=== PATIENT | female | born 1950 | race Caucasian/White ===

== ENCOUNTER → 2017-08-12 10:13 | Outpatient (CLI) | payer MEDICARE, BC, SELFPAY ==
--- NOTE | 2017-08-12 10:25 | XR_ITS ---
XR chest 2V HISTORY: ITS.REASON: INFLUENZA, PERSISTANT COUGH ORDERING PHYSICIAN: Shira Sinha PATIENT AGE: 66 years COMPARISON: None available FINDINGS: The cardiomediastinal silhouette and pulmonary vascularity are within normal limits. The lungs are clear without infiltrates, suspicious nodules, or pleural effusions. No acute bony abnormalities. IMPRESSION: Negative chest, no acute finding
== END ==
PROVIDERS: PCP Internal Medicine Adolescent Medicine; Visit Provider Nurse Practitioner Family
DX: R05 Cough (principal); J11.1 Influenza due to unidentified influenza virus with other respiratory manifestations
CPT/HCPCS: 71046

== ENCOUNTER → 2017-09-12 09:26 | Outpatient (CLI) | payer MEDICARE, BC, SELFPAY ==
--- NOTE | 2017-09-12 09:35 | XR_ITS ---
EXAM: XR lumbar spine min 4V HISTORY: ITS.REASON: LBP RADIATING TO LEFT LEG ORDERING PHYSICIAN: Dorene Stephens PATIENT AGE: 66 years COMPARISON: None FINDINGS: There is mild lumbar curvature convex right. There is straightening of the lumbar lordosis. Degenerative disc disease is present at T12-L4 most severe at L3-L4 with endplate osteophytes. No fracture or dislocation. No lytic or blastic change. IMPRESSION: Degenerative disc disease worse at L3-L4
--- NOTE | 2017-09-12 09:35 | XR_ITS ---
XR hip LT 2-3V w/pelvis HISTORY: ITS.REASON: LBP RADIATING TO LEFT LEG ORDERING PHYSICIAN: Dorene Stephens PATIENT AGE: 66 years COMPARISON: None FINDINGS: There are minimal osteoarthritic changes of the left hip with slight decrease in the joint space and minimal osteophyte formation. No fracture or dislocation. No lytic or blastic change. There is a small sclerotic focus overlying the left ilium and could be due to small bone island. IMPRESSION: Mild osteoarthritis of left hip
== END ==
PROVIDERS: PCP Internal Medicine Adolescent Medicine; Visit Provider Nurse Practitioner Family
DX: M54.5 Low back pain (principal)
CPT/HCPCS: 72110; 73502

== ENCOUNTER 2017-10-28 07:22 | Day surgery (SDC) | payer MEDICARE, BC, SELFPAY ==
[2017-10-27 14:32] VITALS: BMI 36.0
[2017-10-28 07:47] VITALS: BP 142/86; PULSE 72; RESP 18; TEMP 36.9; O2SAT 94
[2017-10-28 09:34] VITALS: BP 193/86; PULSE 64; RESP 18; O2SAT 98
[2017-10-28 09:39] VITALS: BP 164/72; PULSE 62; RESP 18; O2SAT 100
[2017-10-28 09:44] VITALS: BP 155/55; PULSE 63; RESP 18; O2SAT 100
[2017-10-28 09:49] VITALS: BP 144/65; PULSE 60; RESP 18; O2SAT 100
[2017-10-28 09:56] VITALS: BP 156/90; PULSE 62; RESP 18; TEMP 36.8; O2SAT 94
== END 2017-10-28 10:10 | disposition home or self-care (01) ==
LOC: OR 07:25
PROVIDERS: Family Provider Internal Medicine Adolescent Medicine; PCP Internal Medicine Adolescent Medicine; Visit Provider Ophthalmology
DX: H25.811 Combined forms of age-related cataract, right eye (principal); H53.8 Other visual disturbances; H35.3110 Nonexudative age-related macular degeneration, right eye, stage unspecified
CPT/HCPCS: 66984; V2632

== ENCOUNTER → 2017-12-24 08:26 | Outpatient (CLI) | payer MEDICARE, BC, SELFPAY ==
[2017-12-24 09:41] LABS: Basophils % 0.7 % (0.1-2.0); Eosinophils # 0.1 K/mm3 (0.0-0.4); Eosinophils % 1.6 % (0.1-12.0); Hematocrit 38.9 % (37.0-47.0); Hemoglobin 13.9 g/dL (12.2-16.2); Lymphocytes # 1.8 K/mm3 (0.7-4.5); Lymphocytes % 33.6 K/mm3 (10-50); Mean Corpuscular HGB Conc 35.7 g/dL (31.8-35.4); Mean Corpuscular Hemoglobin 31.1 pg (27.0-31.2); Mean Corpuscular Volume 87.3 fl (81-99); Mean Platelet Volume 7.1 fl (7.4-10.4); Monocytes # 0.4 K/mm3 (0.1-1.0); Monocytes % 7.6 % (1.7-9.3); Neutrophils # 2.9 K/mm3 (1.8-7.8); Neutrophils % 56.4 % (37.0-80.0); Platelet Count 296 K/mm3 (142-424); Red Blood Count 4.46 M/mm3 (4.20-5.40); Red Cell Distribution Width 12.7 % (11.5-17.5); White Blood Count 5.2 K/mm3 (4.8-10.8)
[2017-12-24 11:50] LABS: Alanine Aminotransferase 22 U/L (12-78); Albumin Level 4.1 gm/dL (3.4-5.0); Albumin/Globulin Ratio 1.2 (1.1-1.8); Alkaline Phosphatase 66 U/L (46-116); Aspartate Amino Transferase 21 U/L (15-37); Bilirubin,Total 0.5 mg/dL (0.2-1.0); Blood Urea Nitrogen 23 mg/dL (7-18); Calcium 10.3 mg/dL (8.5-10.1); Carbon Dioxide 32 mmol/L (21.0-32.0); Chloride 97 mmol/L (98-107); Chol/HDL Ratio 3.1 (1-3.5); Cholesterol 173 mg/dL (140-200); Creatinine,Serum 0.87 mg/dL (0.55-1.02); Estimated Glomerular Filt Rate 65 ml/min (>60); GFR (African American) 79 ML/MIN (>60); Globulin 3.3 gm/dl (1.3-3.2); Glucose 113 mg/dL (74-106); HDL Cholesterol 56 mg/dL (29-89); LDL Cholesterol 102 mg/dL (0-130); Sodium 137 mmol/L (136-145); Total Protein,Serum 7.4 gm/dL (6.4-8.2); Triglycerides 77 mg/dL (30-200); VLDL Cholesterol 15 mg/dL (0-40)
[2017-12-24 12:23] LABS: Hemoglobin A1C 5.8 % (0.0-7.0)
[2017-12-25 21:16] LABS: Vitamin D 25 Hydroxy 75.6 ng/mL (30.0-100.0)
[2017-12-25 21:17] LABS: Microalbumin, Urine <3.0 ug/mL (Not Estab.)
== END ==
PROVIDERS: Visit Provider Nurse Practitioner Family
DX: R73.9 Hyperglycemia, unspecified (principal); E78.4 Other hyperlipidemia; M85.89 Other specified disorders of bone density and structure, multiple sites; M12.9 Arthropathy, unspecified
CPT/HCPCS: 36415; 80053; 80061; 82043; 82652; 83036; 85025

== ENCOUNTER → 2018-05-25 10:18 | Outpatient (POV) | payer MEDICARE, BC, SELFPAY ==
[2018-05-25 11:50] LABS: INR 0.96 (0.9-1.1); Prothrombin Time 9.9 seconds (9.4-11.8)
[2018-05-25 12:07] LABS: Basophils % 0.4 % (0.1-2.0); Eosinophils # 0.1 K/mm3 (0.0-0.4); Eosinophils % 1.8 % (0.1-12.0); Hematocrit 43.6 % (37.0-47.0); Hemoglobin 14.6 g/dL (12.2-16.2); Lymphocytes # 1.9 K/mm3 (0.7-4.5); Lymphocytes % 29.8 K/mm3 (10-50); Mean Corpuscular HGB Conc 33.5 g/dL (31.8-35.4); Mean Corpuscular Hemoglobin 30.7 pg (27.0-31.2); Mean Corpuscular Volume 91.5 fl (81-99); Mean Platelet Volume 6.8 fl (7.4-10.4); Monocytes # 0.3 K/mm3 (0.1-1.0); Monocytes % 4.8 % (1.7-9.3); Neutrophils # 4.1 K/mm3 (1.8-7.8); Neutrophils % 63.1 % (37.0-80.0); Platelet Count 267 K/mm3 (142-424); Red Blood Count 4.77 M/mm3 (4.20-5.40); Red Cell Distribution Width 13.6 % (11.5-17.5); White Blood Count 6.5 K/mm3 (4.8-10.8)
[2018-05-25 12:57] LABS: Alanine Aminotransferase 21 U/L (12-78); Albumin Level 3.9 gm/dL (3.4-5.0); Albumin/Globulin Ratio 1.1 (1.1-1.8); Alkaline Phosphatase 85 U/L (46-116); Anion Gap 12.3 mEq/L (5-15); Aspartate Amino Transferase 19 U/L (15-37); Bilirubin,Total 0.5 mg/dL (0.2-1.0); Blood Urea Nitrogen 17 mg/dL (7-18); Calcium 9.6 mg/dL (8.5-10.1); Carbon Dioxide 30 mmol/L (21.0-32.0); Chloride 98 mmol/L (98-107); Creatinine,Serum 0.75 mg/dL (0.55-1.02); Estimated Glomerular Filt Rate 77 ml/min (>60); Ferritin 104 ng/mL (8-388); GFR (African American) 93 ML/MIN (>60); Globulin 3.4 gm/dl (1.3-3.2); Glucose 114 mg/dL (74-106); Potassium 4.3 mmoL/L (3.5-5.1); Sodium 136 mmol/L (136-145); Total Protein,Serum 7.3 gm/dL (6.4-8.2)
[2018-05-26 08:26] LABS: Iron 89 ug/dL (27-139); UIBC 269 ug/dL (118-369)
[2018-05-26 15:56] LABS: Iron Saturation 25 % (15-55)
[2018-05-27 07:18] LABS: ALT (SGPT) P5P 17 IU/L (0-40); Alpha 2-Macroglobulins, Qn 207 mg/dL (110-276); Apolipoprotein A-1 159 mg/dL (116-209); Bilirubin, Total 0.3 mg/dL (0.0-1.2); Fibrosis Score 0.13 (0.00-0.21); GGT 14 IU/L (0-60); Haptoglobin 139 mg/dL (34-200); Necroinflammat Activity Grade A0-No activity (.); Necroinflammat Activity Score 0.05 (0.00-0.17)
== END ==
PROVIDERS: Visit Provider Nurse Practitioner Acute Care
DX: K74.3 Primary biliary cirrhosis; R10.11 Right upper quadrant pain; R94.31 Abnormal electrocardiogram [ECG] [EKG]
CPT/HCPCS: 36415; 80053; 82728; 83540; 83550; 85025; 85610

== ENCOUNTER → 2018-05-29 07:48 | Outpatient (CLI) | payer MEDICARE, BC, SELFPAY ==
--- NOTE | 2018-05-29 08:00 | US_ITS ---
US abdomen limited History:Epigastric pain and heartburn Ordering Physician:Melida Montes Patient Age: 67 years Comparison:None Findings:The pancreas is normal in size and shows diffuse increased echogenicity consistent with fatty infiltration. The liver is normal in size and shows overall increased echogenicity consistent with diffuse fatty infiltration. There is a small calcification right lobe with acoustic shadowing beneath. The patient is post cholecystectomy, common bile duct measures 0.5 cm. There is no intrahepatic biliary ductal dilatation. The portal vein measures 0.8 cm. The right kidney measures 10.6 x 4.6 x 6.1 cm. There is a good cortical medullary junction with no hydronephrosis noted. There is a small benign-appearing cortical cyst upper pole measuring 1.1 x 1.2 x 1.1 cm. Impression:Hepatic steatosis, small benign-appearing cortical cyst right kidney
--- NOTE | 2018-05-29 08:46 | CA_ITS ---
PROCEDURE: 2-D M-mode and color Doppler study INDICATIONS FOR THE TEST: Chest pain COPD Heart Murmur Tobacco Smoking+ Palpitations Fatigue Syncope Edema Hypertension+Diabetes Mellitus Rheumatic Fever SOB BADILLO Obesity Hyperlipidemia Family History HD+ Additional History PATIENT INFORMATION HEIGHT: 63 WEIGHT:179 GENDER: Female B/P:133/78 2-D/M-MODE INTERPRETATION: 2-D MEASUREMENTS OBSERVED VALUES IN CMS Right Ventricular Dimension (RVDd) 2.7 Interventricular Septum (Thickness)(IVsd) 1.0 Left Ventricular Internal Dimensions(LVIDd) 5.1 Left Ventricular Posterior Wall (Thickness)(LVPWd) 0.9 Aortic Root 2.4 Aortic Cusp Separation 1.7 Left Atrial Dimensions (LAD) 3.5 2D 1. Left atrium is mildly enlarged, left ventricle is normal size, there is mild qualitative concentric left ventricular hypertrophy, visually estimated ejection fraction 55% with no regional wall motion abnormality. 2. The right atrium and right ventricle are mildly enlarged with normal contractility. 3. The aortic valve is minimally thickened and fibrosed. 4. The mitral and tricuspid valve are grossly normal. 5. The pulmonic valve is poorly visualized. 6. No significant pericardial effusion noted. DOPPLER INTERROGATION: Doppler interrogation of the aortic, mitral and tricuspid valvular presence of mild mitral and tricuspid regurgitation, tricuspid regurgitation jet velocity is inadequate for calculation of the right ventricular systolic pressure, grade 1 diastolic dysfunction seen with tissue Doppler evidence of raised left atrial pressure. CONCLUSION: 1. Biatrial enlargement, normal left ventricular size, visually estimated ejection fraction 55% with no regional wall motion abnormality, grade 1 diastolic dysfunction seen with tissue Doppler evidence of raised left atrial pressure. 2. Mild mitral and tricuspid regurgitation 3. No significant pericardial effusion noted.
== END ==
PROVIDERS: PCP Internal Medicine Adolescent Medicine; Visit Provider Nurse Practitioner Acute Care
DX: R94.31 Abnormal electrocardiogram [ECG] [EKG] (principal)
CPT/HCPCS: 76705; 93306

== ENCOUNTER → 2018-06-04 06:51 | Outpatient (CLI) | payer MEDICARE, BC, SELFPAY ==
--- NOTE | 2018-06-04 06:53 | NM_ITS ---
History and Indications: Hypertension, family history, fatigue Procedure: Patient received a 0.4 mg of intravenous Lexiscan, resting heart rate was 45 bpm resting blood pressure 164/75, with Lexiscan maximum heart rate achieved was 78 bpm is less than 85% of the maximum predicted heart rate and a blood pressure was 140/70. With Lexiscan patient complained of shortness of breath Electrocardiogram: Resting electrocardiogram showed sinus bradycardia, with Lexiscan there is less than 1.[address] segment depression noted from the baseline EKG. The EKG portion of the Lexiscan Myoview is nondiagnostic. Cardiac SPECT stress and rest images: Cardiac stress and resting SPECT images were obtained using technetium 99 Myoview 31.1 mCi stress and 10.7 mCi at rest. Gated SPECT further analysis of segmental wall motion and calculation of the ejection fraction also done. Cardiac stress and rest SPECT images show uniform myocardial activity without segmental perfusion abnormality, computer derived ejection fraction is over 65% with no regional wall motion abnormality, right ventricle is normal size and contractility. Conclusion: 1. The EKG portion of the Lexiscan Myoview is nondiagnostic. 2. No scintigraphic evidence of reversible ischemia seen, computer derived ejection fraction is over 65% with no regional wall motion abnormality, right ventricle are normal size and contractility. 3. Normal Lexiscan Myoview study.
--- NOTE | 2018-06-04 09:04 | HMH.ITSHM ---
Current Home Medications as stated by this patient Kirstie Rick or customer response representative. []asa lisinopril calium omeprazole vit e naproxen hydrochlorthiazide metoprolol
== END ==
PROVIDERS: PCP Internal Medicine Adolescent Medicine; Visit Provider Internal Medicine
DX: R07.9 Chest pain, unspecified (principal); I10 Essential (primary) hypertension; K76.0 Fatty (change of) liver, not elsewhere classified; R42 Dizziness and giddiness
CPT/HCPCS: 78452; 93017; A9502; J2785

== ENCOUNTER → 2018-06-10 07:53 | Outpatient (CLI) | payer MEDICARE, BC, SELFPAY ==
--- NOTE | 2018-06-10 07:54 | AS_ITS ---
Renal Arterial Duplex Indications: 405.91 Unspecified renovascular hypertension. IMPRESSIONS 1. The right renal artery appears normal. 2. The left renal artery appears normal. 3. No evidence of renal artery stenosis, bilaterally. Mildly elevated velocities noted, due to tortuosity. Normal kidney size, bilaterally. Complete renal arterial duplex. Duplex scan and Doppler flow study including spectral analysis, color and cooper scale imaging. Height: Height: 160cm. Height: 63in. Weight: Weight: 79.8kg. Weight: 175.6lb. Body mass index: BMI: 31.2kg/m^2. Body surface area: BSA: 1.91m^2. Location: Vascular laboratory. Patient status: Outpatient. Tables: Arterial flow: + +-------+--------+ Location V sys V ed + +-------+--------+ Right renal - proximal 185cm/s 41.3cm/s + +-------+--------+ Right renal - mid 210cm/s 57.6cm/s + +-------+--------+ Right renal - distal 108cm/s 35.2cm/s + +-------+--------+ Left renal - proximal 223cm/s 57.8cm/s + +-------+--------+ Left renal - mid 170cm/s 29.3cm/s + +-------+--------+ Left renal - distal 147cm/s 24.9cm/s + +-------+--------+ Right renal - Origin 197cm/s 41cm/s + +-------+--------+ Left renal - Origin 227cm/s 65cm/s + +-------+--------+ Aorta 71cm/s 10cm/s + +-------+--------+ Artery mapping: + +--------+-------+ + Location Diameter Patency Observations + +--------+-------+ + Abdominal aorta - mid 1.45mm Patent Calcification + +--------+-------+ + Renal anatomy: + +------+------+ Left Right + +------+------+ Long axis 10.5cm 11.4cm + +------+------+ Short axis 4.1cm 4.8cm + +------+------+ Velocity ratios: + +-----+ V sys + +-----+ Right renal/aortic 3 + +-----+ Left renal/aortic 3.2 + +-----+ (Report amended ) Electronically signed by: Greg Garcia [id number]
== END ==
PROVIDERS: PCP Internal Medicine Adolescent Medicine; Visit Provider Internal Medicine
DX: I10 Essential (primary) hypertension (principal)
CPT/HCPCS: 93976

== ENCOUNTER → 2018-08-06 15:21 | Outpatient (CLI) | payer MEDICARE, BC, SELFPAY ==
--- NOTE | 2018-08-06 15:35 | MM_ITS ---
MM Dig screening mamm BI w/CAD ORDERING PHYSICIAN : Emil Bhatt MD PATIENT AGE: 67 years GENDER: Female COMPARISON: June 2014, 2014, 2015, 2016. INDICATION: ITS.Routine mammography: SCREENING. No hormones. No new complaints. HISTORY of Previous cyst aspiration and benign excisional biopsy at the right breast. Family history.. Patient's maternal aunts with with breast cancer x2 TECHNIQUE: Standard CC and MLO images were obtained. R2 CAD reviewed. FINDINGS: Moderate breast density bilaterally. . Breast tissue Most evident towards upper-outer quadrant. With mild asymmetry. However there is no new dominant mass nor suspicious calcifications. No significant new findings RIGHT BREAST: No new areas of concern An area of relative density at the lateral right breast is similar to previous studies on today's cc view. It dissipates on other views. LEFT BREAST: No new areas significant concern . The minimal density towards superior left breast MLO is similar to previous studies such as seen on June 2016. And dissipates on the cc view. IMPRESSION: Stable bilateral mammogram with no significant new findings. BI-RADS Category: 1 Negative RECOMMENDED FOLLOW-UP: 1YR 1 YEAR FOLLOW-UP (A letter has been sent to the patient regarding results of the study.)
== END ==
PROVIDERS: PCP Internal Medicine Adolescent Medicine; Visit Provider Internal Medicine Adolescent Medicine
DX: Z12.31 Encounter for screening mammogram for malignant neoplasm of breast (principal)
CPT/HCPCS: 77067

== ENCOUNTER → 2018-12-29 13:56 | Outpatient (CLI) | payer MEDICARE, BC, SELFPAY ==
[2018-12-29 15:58] VITALS: PULSE 69; PULSE 72
== END ==
PROVIDERS: PCP Internal Medicine Adolescent Medicine; Visit Provider Internal Medicine Adolescent Medicine
DX: R05 Cough (principal)
CPT/HCPCS: 94060; 94640; 94726; 94729

== ENCOUNTER → 2019-08-16 15:05 | Outpatient (POV) | payer MEDICARE, BC, SELFPAY | PROVIDERS: Visit Provider Nurse Practitioner Family | DX: Z00.00 Encounter for general adult medical examination without abnormal findings (principal) ==

== ENCOUNTER → 2019-09-20 10:48 | Outpatient (CLI) | payer MEDICARE, BC, SELFPAY ==
--- NOTE | 2019-09-20 10:53 | MM_ITS ---
PROCEDURE: MM DIG SCREENING MAMM BI W/CAD CLINICAL INDICATION: SCREENING There is a history of breast cancer patient's 2 maternal aunts. There has been a previous cyst aspiration and biopsy right breast for benign disease. COMPARISON: [facility] DIG MAMM-SCREEN [facility]EID from 06/25/2016 [facility] DIG MAMM-SCREEN SAEID W/CAD from 06/30/2017 [facility] MM Dig screening mamm BI w/CAD from 08/06/2018 TECHNIQUE: Standard CC and MLO images and 3D Tomosynthesis was obtained. R2 CAD reviewed. FINDINGS: Minimal scattered fibroglandular densities are seen in both breast primarily upper outer quadrants. There is stable minimal post biopsy scarring right breast. There are couple of benign-appearing microcalcifications right breast. There is no suspicious lesion and no suspicious microcalcifications. There are stable small nodes in both axilla. Baldo images were reviewed. IMPRESSION: Stable exam with no suspicious lesions seen BI-RAD Category: 2 Benign Finding(s) FOLLOW-UP: 1YR 1 Year Follow-up (A letter has been sent to the patient regarding results of the study.) Dictated by: Dr. Elfego Chand MD 09/21/2019 08:[address] Elfego Chand MD in [place] 09/21/2019 08:00
== END ==
PROVIDERS: PCP Internal Medicine Adolescent Medicine; Visit Provider Internal Medicine Adolescent Medicine
DX: Z12.31 Encounter for screening mammogram for malignant neoplasm of breast (principal)
CPT/HCPCS: 77063; 77067

== ENCOUNTER → 2020-01-18 08:48 | Outpatient (CLI) | payer MEDICARE, BC, SELFPAY ==
--- NOTE | 2020-01-18 08:51 | XR_ITS ---
PROCEDURE: XR DEXA AXIAL SKELETON CLINICAL HISTORY: POST MENOPAUSAL COMPARISON: No exams were available for comparison FINDINGS: Right femoral neck density is 0.793 grams/centimeters sq with T-score -0 point Left Total femoral proximal density is 0.775 grams/centimeters sq with a T-score of -1.4, osteopenia L1-L4 density is 0.991 grams/centimeters sq with a T-score of -0 5 IMPRESSION: Osteopenia with moderate fracture risk. Treatment advised. Suggest follow-up exam in 2 years. Dictated by: Greg Garcia MD 01/19/2020 17:28 Electronically signed by Greg Garcia MD in [place] 01/19/2020 17:28
== END ==
PROVIDERS: PCP Internal Medicine Adolescent Medicine; Visit Provider Nurse Practitioner Family
DX: Z13.820 Encounter for screening for osteoporosis (principal); Z78.0 Asymptomatic menopausal state
CPT/HCPCS: 77080

== ENCOUNTER → 2020-02-14 15:07 | Outpatient (POV) | payer MEDICARE, BC, SELFPAY | PROVIDERS: Visit Provider Nurse Practitioner Family | DX: Z00.00 Encounter for general adult medical examination without abnormal findings (principal) ==

== ENCOUNTER → 2020-06-06 11:23 | Outpatient (POV) | payer MEDICARE, BC, SELFPAY | PROVIDERS: Visit Provider Dermatology | DX: Z00.00 Encounter for general adult medical examination without abnormal findings (principal) ==

== ENCOUNTER → 2020-07-18 10:32 | Outpatient (POV) | payer MEDICARE, BC, SELFPAY | PROVIDERS: Visit Provider Dermatology | DX: Z00.00 Encounter for general adult medical examination without abnormal findings (principal) ==

== ENCOUNTER → 2020-08-07 10:45 | Outpatient (CLI) | payer MEDICARE, BC, SELFPAY ==
--- NOTE | 2020-08-07 11:12 | XR_ITS ---
PROCEDURE: XR CHEST PORTABLE CLINICAL HISTORY: COVID + COMPARISON: CR CXR2V XR chest 2V from 08/12/2017 CR CXR2V XR chest 2V from 06/01/2018 FINDINGS: The cardiomediastinal silhouette and pulmonary vascularity are within normal limits. Chronic changes are present in the lung bases. No lobar consolidation or collapse is evident. No acute bony abnormalities. IMPRESSION: No acute findings. Dictated by: Greg Garcia MD 08/07/2020 11:47 Greg Garcia MD in [place] 08/07/2020 11:47
[2020-08-07 11:16] LABS: Basophils # 0.1 K/mm3 (0-0.2); Basophils % 0.8 % (0.1-2.0); Eosinophils # 0.1 K/mm3 (0.0-0.4); Eosinophils % 1.1 % (0.1-12.0); Hematocrit 39.8 % (37.0-47.0); Hemoglobin 13.5 g/dL (12.2-16.2); Lymphocytes # 0.7 K/mm3 (0.7-4.5); Lymphocytes % 11.8 % (10-50); Mean Corpuscular Volume 91.3 fl (81-99); Mean Platelet Volume 6.9 fl (7.4-10.4); Monocytes # 0.6 K/mm3 (0.1-1.0); Monocytes % 8.9 % (1.7-9.3); Neutrophils # 4.9 K/mm3 (1.8-7.8); Neutrophils % 77.3 % (37.0-80.0); Platelet Count 265 K/mm3 (142-424); Red Blood Count 4.36 M/mm3 (4.20-5.40); Red Cell Distribution Width 13.4 % (11.5-17.5); White Blood Count 6.3 K/mm3 (4.8-10.8)
[2020-08-07 11:46] LABS: Alanine Aminotransferase 18 U/L (12-78); Albumin Level 4.2 g/dl (3.5-5.0); Albumin/Globulin Ratio 1.3 (1.1-1.8); Alkaline Phosphatase 75 U/L (38-126); Anion Gap 11.1 mEq/L (5-15); Aspartate Amino Transferase 25 U/L (14-36); Bilirubin,Total 0.4 mg/dl (0.2-1.3); Blood Urea Nitrogen 19 mg/dl (7-17); Calcium 9.5 mg/dl (8.4-10.2); Carbon Dioxide 28 mmol/L (22.0-30.0); Chloride 98 mmol/L (98-107); Estimated Glomerular Filt Rate 62 ml/min (>60); GFR (African American) 75 ML/MIN (>60); Globulin 3.2 g/dL (1.3-3.2); Glucose 140 mg/dl (74-100); Potassium 4.1 mmoL/L (3.5-5.1); Sodium 133 mmol/L (136-145); Total Protein,Serum 7.4 g/dl (6.3-8.2)
== END ==
PROVIDERS: Visit Provider Nurse Practitioner Family
DX: U07.1 COVID-19 (principal); Z51.81 Encounter for therapeutic drug level monitoring
CPT/HCPCS: 36415; 71045; 80053; 85025

== ENCOUNTER 2020-08-08 10:35 | Outpatient (CLI) | payer MEDICARE, BC, SELFPAY ==
[2020-08-08] VITALS (8 sets, daily range): BP systolic 117–156; BP diastolic 67–84; PULSE 64–88; RESP 16–18; TEMP 36.9; O2SAT 92–95
== END 2020-08-08 14:10 | disposition home or self-care (01) ==
PROVIDERS: PCP Internal Medicine Adolescent Medicine; Visit Provider Internal Medicine Adolescent Medicine
DX: U07.1 COVID-19 (principal)
CPT/HCPCS: 96365

== ENCOUNTER → 2020-09-29 09:22 | Outpatient (CLI) | payer MEDICARE, BC, SELFPAY ==
--- NOTE | 2020-09-29 09:26 | MM_ITS ---
PROCEDURE: MM DIG SCREENING MAMM BI W/CAD Digital Breast Tomosynthesis Included CLINICAL INDICATION: SCREENING There is a history of breast cancer in the patient's 2 maternal aunts. There have been previous procedures on each breast for benign disease. COMPARISON: MG [facility] DIG MAMM-SCREEN SAEID W/CAD from 06/30/2017 [facility] MM Dig screening mamm BI w/CAD from 08/06/2018 MG MM DIG SCREENING MAMM BI W/CAD from 09/20/2019 TECHNIQUE: Standard CC and MLO images and 3D Tomosynthesis was obtained. R2 CAD reviewed. FINDINGS: Mild to moderate fibroglandular densities are seen in the central portions of both breasts. There are couple of benign-appearing calcifications right breast. There are no CAD markings. There is no suspicious lesion in either breast and no suspicious microcalcifications. IMPRESSION: Fibrofatty parenchyma with no suspicious lesions seen BI-RAD Category: 2 Benign Finding(s) FOLLOW-UP: 1YR 1 Year Follow-up (A letter has been sent to the patient regarding results of the study.) Dictated by: Dr. Elfego Chand MD 10/02/2020 14:16 Dr. Elfego Chand MD in [place] 10/02/2020 14:16
== END ==
PROVIDERS: PCP Internal Medicine Adolescent Medicine; Visit Provider Internal Medicine Adolescent Medicine
DX: Z12.31 Encounter for screening mammogram for malignant neoplasm of breast (principal)
CPT/HCPCS: 77063; 77067

== ENCOUNTER → 2021-02-07 09:46 | Outpatient (CLI) | payer MEDICARE, BC, SELFPAY ==
[2021-02-07 10:34] LABS: Basophils # 0.1 K/mm3 (0-0.2); Basophils % 0.8 % (0.1-2.0); Eosinophils # 0.2 K/mm3 (0.0-0.4); Hematocrit 38.3 % (37.0-47.0); Hemoglobin 13.1 g/dL (12.2-16.2); Lymphocytes # 2.4 K/mm3 (0.7-4.5); Lymphocytes % 33.1 % (10-50); Mean Corpuscular HGB Conc 34.3 g/dL (31.8-35.4); Mean Corpuscular Hemoglobin 30.6 pg (27.0-31.2); Mean Corpuscular Volume 89.2 fl (81-99); Mean Platelet Volume 7.4 fl (7.4-10.4); Monocytes # 0.5 K/mm3 (0.1-1.0); Monocytes % 6.4 % (1.7-9.3); Neutrophils # 4.1 K/mm3 (1.8-7.8); Neutrophils % 56.8 % (37.0-80.0); Platelet Count 298 K/mm3 (142-424); Red Blood Count 4.29 M/mm3 (4.20-5.40); Red Cell Distribution Width 13.5 % (11.5-17.5); White Blood Count 7.1 K/mm3 (4.8-10.8)
[2021-02-07 11:05] LABS: Chloride 102 mmol/L (98-107)
[2021-02-07 11:06] LABS: Potassium 4.5 mmoL/L (3.5-5.1); Sodium 138 mmol/L (136-145)
[2021-02-07 11:08] LABS: Alanine Aminotransferase 16 U/L (12-78); Alkaline Phosphatase 67 U/L (38-126); Anion Gap 12.5 mEq/L (5-15); Aspartate Amino Transferase 26 U/L (14-36); Bilirubin,Total 0.7 mg/dl (0.2-1.3); Blood Urea Nitrogen 22 mg/dl (7-17); Carbon Dioxide 28 mmol/L (22.0-30.0); Estimated Glomerular Filt Rate 62 ml/min (>60); GFR (African American) 75 ML/MIN (>60)
[2021-02-07 11:09] LABS: Albumin Level 4.2 g/dl (3.5-5.0); Albumin/Globulin Ratio 1.4 (1.1-1.8); Calcium 9.4 mg/dl (8.4-10.2); Globulin 3.1 g/dL (1.3-3.2); Glucose 107 mg/dl (74-100); Total Protein,Serum 7.3 g/dl (6.3-8.2)
[2021-02-07 14:03] LABS: 25-OH Vitamin D, Total 53.6 ng/mL (30-100)
== END ==
PROVIDERS: Visit Provider Nurse Practitioner Family
DX: K76.0 Fatty (change of) liver, not elsewhere classified (principal); M85.89 Other specified disorders of bone density and structure, multiple sites
CPT/HCPCS: 36415; 80053; 82306; 85025

== ENCOUNTER → 2021-02-12 10:12 | Outpatient (POV) | payer MEDICARE, BC, SELFPAY | PROVIDERS: Visit Provider Nurse Practitioner Family | DX: Z00.00 Encounter for general adult medical examination without abnormal findings (principal) ==

== ENCOUNTER → 2021-04-16 08:47 | Outpatient (CLI) | payer MEDICARE, BC, SELFPAY ==
[2021-04-16 09:26] LABS: Basophils # 0.1 K/mm3 (0-0.2); Basophils % 0.7 % (0.1-2.0); Eosinophils # 0.2 K/mm3 (0.0-0.4); Eosinophils % 3.1 % (0.1-12.0); Hematocrit 42.4 % (37.0-47.0); Hemoglobin 13.8 g/dL (12.2-16.2); Lymphocytes # 2.3 K/mm3 (0.7-4.5); Lymphocytes % 33.4 % (10-50); Mean Corpuscular HGB Conc 32.5 g/dL (31.8-35.4); Mean Corpuscular Hemoglobin 30.6 pg (27.0-31.2); Mean Corpuscular Volume 94.1 fl (81-99); Mean Platelet Volume 6.8 fl (7.4-10.4); Monocytes # 0.4 K/mm3 (0.1-1.0); Monocytes % 5.8 % (1.7-9.3); Neutrophils # 3.9 K/mm3 (1.8-7.8); Neutrophils % 56.9 % (37.0-80.0); Platelet Count 331 K/mm3 (142-424); Red Blood Count 4.51 M/mm3 (4.20-5.40); Red Cell Distribution Width 12.6 % (11.5-17.5); White Blood Count 6.9 K/mm3 (4.8-10.8)
[2021-04-16 10:28] LABS: Alanine Aminotransferase 18 U/L (12-78); Albumin Level 4.1 g/dl (3.5-5.0); Albumin/Globulin Ratio 1.4 (1.1-1.8); Alkaline Phosphatase 69 U/L (38-126); Anion Gap 13.4 mEq/L (5-15); Aspartate Amino Transferase 26 U/L (14-36); Bilirubin,Total 0.5 mg/dl (0.2-1.3); Blood Urea Nitrogen 15 mg/dl (7-17); Calcium 9.7 mg/dl (8.4-10.2); Carbon Dioxide 30 mmol/L (22.0-30.0); Chloride 98 mmol/L (98-107); Chol/HDL Ratio 3.8 (1-3.5); Cholesterol 210 mg/dl (140-200); Estimated Glomerular Filt Rate 71 ml/min (>60); GFR (African American) 86 ML/MIN (>60); Glucose 107 mg/dl (74-100); HDL Cholesterol 55 mg/dl (40-60); Potassium 4.4 mmoL/L (3.5-5.1); Sodium 137 mmol/L (136-145); Total Protein,Serum 7.1 g/dl (6.3-8.2); Triglycerides 206 mg/dl (30-150); VLDL Cholesterol 41 mg/dL (0-40)
[2021-04-16 10:36] LABS: Coronavirus 19 IgG Antibody Negative (Negative); Coronavirus 19 IgM Antibody Negative (Negative)
[2021-04-16 10:39] LABS: Direct LDL Cholesterol 101.82 mg/dL (100-129)
[2021-04-16 13:42] LABS: Hemoglobin A1C 6.3 % (4.0-6.0)
== END ==
PROVIDERS: Visit Provider Internal Medicine Adolescent Medicine
DX: I10 Essential (primary) hypertension (principal); Z86.16 Personal history of COVID-19; Z79.899 Other long term (current) drug therapy
CPT/HCPCS: 36415; 80053; 80061; 83036; 85025; 86328

== ENCOUNTER → 2021-09-24 09:54 | Outpatient (CLI) | payer MEDICARE, BC, SELFPAY ==
--- NOTE | 2021-09-24 10:00 | MM_ITS ---
PROCEDURE INFORMATION: Exam: MG Bilateral Screening 3D Mammography Exam date and time: 09/24/2021 10:00 AM Age: 70 years old Clinical indication: Screening mammogram TECHNIQUE: Imaging protocol: Bilateral Screening tomosynthesis and 2D mammography including computer-aided detection (CAD) when performed. COMPARISON: 1. MG MM DIG SCREENING MAMM BI W/CAD 09/29/2020 9:28 AM 2. MG MM DIG SCREENING MAMM BI W/CAD 09/20/2019 11:13 AM 3. MG [facility] MM Dig screening mamm BI w/CAD 08/06/2018 3:54 PM 4. MG [facility] DIG MAMM-SCREEN SAEID W/CAD 06/30/2017 9:40 AM FINDINGS: MAMMOGRAPHY: Breast composition: There are scattered areas of fibroglandular density. Mass: None. Architectural distortion: No new or suspicious architectural distortion. Calcifications: No new or suspicious calcifications are present Asymmetric density: No new or suspicious asymmetric density is present Skin thickening: None. Axillary adenopathy: None. IMPRESSION: No mammographic evidence of malignancy. Recommend annual screening mammography unless otherwise clinically indicated. ASSESSMENT: BI-RADS category 1: Negative
== END ==
PROVIDERS: PCP Internal Medicine Adolescent Medicine; Visit Provider Internal Medicine Adolescent Medicine
DX: Z12.31 Encounter for screening mammogram for malignant neoplasm of breast (principal)
CPT/HCPCS: 77063; 77067

== ENCOUNTER → 2022-04-09 14:14 | Outpatient (POV) | payer MEDICARE, BC, SELFPAY | PROVIDERS: Visit Provider Dermatology | DX: Z00.00 Encounter for general adult medical examination without abnormal findings (principal) ==

== ENCOUNTER → 2022-10-18 15:41 | Outpatient (CLI) | payer MEDICARE, BC, SELFPAY ==
--- NOTE | 2022-10-18 15:47 | MM_ITS ---
PROCEDURE INFORMATION: Exam: MG Bilateral Screening 3D Mammography Exam date and time: 10/18/2022 3:40 PM Age: 71 years old Clinical indication: Screening examination TECHNIQUE: Imaging protocol: Bilateral Screening tomosynthesis and 2D mammography including computer-aided detection (CAD) when performed. COMPARISON: 1. MG MM DIG SCREENING MAMM BI W/CAD 09/24/2021 9:59 AM 2. MG MM DIG SCREENING MAMM BI W/CAD 09/29/2020 9:28 AM FINDINGS: MAMMOGRAPHY: Breast composition: There are scattered areas of fibroglandular density. Mass: None. Architectural distortion: None. Calcifications: No suspicious calcifications. Asymmetric density: None. Skin thickening: None. Axillary adenopathy: None. IMPRESSION: No mammographic evidence of malignancy. Annual screening is recommended unless otherwise clinically indicated. ASSESSMENT: BI-RADS Category 1: Negative
== END ==
PROVIDERS: PCP Nurse Practitioner Family; Visit Provider Nurse Practitioner Family
DX: Z12.31 Encounter for screening mammogram for malignant neoplasm of breast (principal)
CPT/HCPCS: 77063; 77067

== ENCOUNTER → 2023-01-09 13:24 | Outpatient (CLI) | payer MEDICARE, BC, SELFPAY ==
--- NOTE | 2023-01-09 13:28 | MR_ITS ---
FINAL REPORT TECHNIQUE: Multiplanar MR without contrast CLINICAL HISTORY: RIGHT SIDED SCIATICA lower back pain with right leg pain x 6 weeks recent fall x 4 weeks ago COMPARISON: None FINDINGS: Sagittal images show normal vertebral height. Alignment is normal. Marrow signal pattern is unremarkable. T12-L1: Mild annular disc bulge without canal stenosis. L1-2: Mild annular disc bulge. Mild facet arthropathy. No canal stenosis. L2-3: Moderate annular disc bulge and facet arthropathy. Borderline central canal stenosis. Mild left neural foraminal narrowing. L3-4: Mild annular disc bulge. Moderate facet arthropathy. Mild central canal stenosis. Moderate left neural foraminal narrowing. L4-5: Moderate annular disc bulge. Synovial cyst arising from the medial right facet joint measuring up to 8 mm significantly encroaching on the right thecal sac. Moderate facet arthropathy, greater on the right. Advanced central canal stenosis. Mild bilateral neural foraminal narrowing. L5-S1: Mild annular disc bulge. Moderate facet arthropathy. Mild bilateral neural foraminal narrowing. IMPRESSION: Significant multilevel degenerative disc disease and facet degeneration most prominent at L4-5 with significant central canal stenosis or neural foraminal narrowing. Reviewed, Interpreted and Dictated by Matheus Cotton MD Transcribed by Megan Kamara Authenticated and [facility]
== END ==
PROVIDERS: PCP Nurse Practitioner Family; Visit Provider Nurse Practitioner Family
DX: M54.50 Low back pain, unspecified (principal); M54.31 Sciatica, right side
CPT/HCPCS: 72148; 76376

== ENCOUNTER → 2023-03-01 10:10 | Outpatient (CLI) | payer MEDICARE, BC, SELFPAY ==
[2023-03-01 10:45] LABS: Basophils # 0.1 K/mm3 (0-0.2); Basophils % 0.7 % (0.1-2.0); Eosinophils # 0.2 K/mm3 (0.0-0.4); Eosinophils % 3.1 % (0.1-12.0); Hematocrit 40.3 % (37.0-47.0); Hemoglobin 12.8 g/dL (12.2-16.2); Lymphocytes # 2.4 K/mm3 (0.7-4.5); Lymphocytes % 34.2 % (10-50); Mean Corpuscular HGB Conc 31.8 g/dL (31.8-35.4); Mean Corpuscular Hemoglobin 28.9 pg (27.0-31.2); Mean Platelet Volume 7.3 fl (7.4-10.4); Monocytes # 0.6 K/mm3 (0.1-1.0); Monocytes % 7.9 % (1.7-9.3); Neutrophils # 3.8 K/mm3 (1.8-7.8); Platelet Count 321 K/mm3 (142-424); Red Blood Count 4.43 M/mm3 (4.20-5.40); Red Cell Distribution Width 12.9 % (11.5-17.5)
[2023-03-01 11:43] LABS: Alanine Aminotransferase 21 U/L (12-78); Albumin Level 4.1 g/dl (3.5-5.0); Albumin/Globulin Ratio 1.5 (1.1-1.8); Alkaline Phosphatase 74 U/L (38-126); Anion Gap 8.4 mEq/L (5-15); Aspartate Amino Transferase 27 U/L (14-36); Bilirubin,Total 0.4 mg/dl (0.2-1.3); Blood Urea Nitrogen 17 mg/dl (7-17); Calcium 9.5 mg/dl (8.4-10.2); Carbon Dioxide 32 mmol/L (22.0-30.0); Chloride 96 mmol/L (98-107); Chol/HDL Ratio 4.8 (1-3.5); Cholesterol 214 mg/dl (140-200); Estimated Glomerular Filt Rate 62 ml/min (>60); GFR (African American) 74 ML/MIN (>60); Globulin 2.7 g/dL (1.3-3.2); Glucose 122 mg/dl (74-100); HDL Cholesterol 45 mg/dl (40-60); Potassium 4.4 mmoL/L (3.5-5.1); Sodium 132 mmol/L (136-145); Total Protein,Serum 6.8 g/dl (6.3-8.2); Triglycerides 117 mg/dl (30-150); VLDL Cholesterol 23 mg/dL (0-40)
[2023-03-01 11:54] LABS: Direct LDL Cholesterol 119.78 mg/dL (100-129)
== END ==
PROVIDERS: PCP Nurse Practitioner Family; Visit Provider Nurse Practitioner Family
DX: E11.9 Type 2 diabetes mellitus without complications (principal); I10 Essential (primary) hypertension; K76.89 Other specified diseases of liver
CPT/HCPCS: 36415; 80053; 80061; 83036; 85025

== ENCOUNTER → 2023-04-08 09:00 | Outpatient (CLI) | payer MEDICARE, BC, SELFPAY ==
--- NOTE | 2023-04-08 09:03 | XR_ITS ---
FINAL REPORT TECHNIQUE: Bone mineral density was calculated of the lumbar spine and hip. CLINICAL HISTORY: ASYMPTOMATIC MENOPAUSAL STATE FINDINGS: Using L1-4, the bone mineral density of the spine is 0.989 g/cm2, corresponding to T-score of -0.5. Using the left hip, the bone mineral density of the femoral neck is 0.811 g/cm2, corresponding to a T-score of -1.1. Using the right hip, the bone mineral density of the femoral neck is 0.751 g/cm2, corresponding to a T-score of -0.9. NOTE: T-score: Standard deviation compared with peak bone mass of young adult mean. *Following the recommendations of the International Society of Bone densitometry, classification of hip BMD is based on the lower of two T-scores; total hip or femoral neck. IMPRESSION: Diminished bone mineral density of the lumbar spine and hips consistent with low bone density. FRAX was not reported because patient is being treated for osteoporosis. Reviewed, Interpreted and Dictated by Sebastián Manriquez III, MD Transcribed by Yamilet Dodson Authenticated and [facility]
== END ==
PROVIDERS: PCP Nurse Practitioner Family; Visit Provider Nurse Practitioner Family
DX: Z78.0 Asymptomatic menopausal state (principal)
CPT/HCPCS: 77080

== ENCOUNTER 2023-04-15 08:49 | Day surgery (SDC) | payer MEDICARE, BC, SELFPAY ==
[2023-04-14 16:07] VITALS: BMI 34.9
--- NOTE | 2023-04-15 09:45 | SUR.PREOP ---
Due to pt's hypertension in preop, this RN called to let MD Lim aware. stated to have pt seen in the Emergency Room to have this treated. Spoke to Mayela in ED to let her know this. TANK Harrell escorted pt and down to the ED at this time.
[2023-04-15 11:09] LABS: POC Glucose,Bedside 112 (70-110)
== END 2023-04-15 09:45 ==
LOC: OUTP 08:50
PROVIDERS: PCP Nurse Practitioner Family; Visit Provider Ophthalmology
PROC: (CPT 66821; principal; 2023-04-15 10:00)
DX: Z53.09 Procedure and treatment not carried out because of other contraindication (principal); I10 Essential (primary) hypertension; H26.40 Unspecified secondary cataract
CPT/HCPCS: 66821; 82962

== ENCOUNTER 2023-04-15 09:44 | Emergency (ER) | payer MEDICARE, BC, SELFPAY ==
[2023-04-15 09:44] VITALS: BP 200/92; BP 202/89; PULSE 82; RESP 17; TEMP 36.8; O2SAT 96; BMI 34.9
--- NOTE | 2023-04-15 09:53 | HMH.EDGENADL ---
Discharge Plan Disposition Patient Disposition: Home, Self-Care Prescriptions Prescriptions: New amlodipine [Norvasc] 10 mg tablet 10 mg PO DAILY Qty: 14 0RF Rx Instructions: Take in morning No Action ranitidine HCl [Zantac] 150 mg tablet 150 mg PO BID losartan 100 mg tablet 100 mg PO DAILY Januvia 50 mg tablet 50 mg PO DAILY naproxen 250 MG tablet 500 mg PO DAILY hydrochlorothiazide 25 mg tablet 25 mg PO DAILY ursodiol 250 mg tablet 250 mg PO BID melatonin 3 MG tablet 3 mg PO DAILY aspirin 81 MG tablet,delayed release (DR/EC) 81 mg PO DAILY Referrals Follow up/Referrals: Dorene Stephens APRN [Primary Care Provider] - See instructions Activity Restrictions/Add. Instructions Additional Instructions/Restrictions: At this time is felt you are safe to be discharged home. If new or worsening symptoms please do not hesitate to return the emergency department. Please take your medication as prescribed every morning. You were given your first dose in the ER today, start your prescription tomorrow. Please call and reschedule your appointment with Dr. Bhatt at a time that is convenient to you as soon as you are able. Clinical Impressions Clinical Impression: Asymptomatic hypertension Discharge ED Provider: Toño Issa General Adult HPI General Chief complaint: Recheck/Abnormal Lab/Rx Stated complaint: Blood Pressure Time Seen by Provider: 04/15/23 09:44 History of Present Illness HPI narrative: Patient is a 72-year-old female with past medical history of hypertension, [id number] diabetes who presents emergency department to transfer patient from operating room for evaluation of hypertension. Patient was getting ready to get her cataract laser therapy, had already had her left eye dilated when due to her blood pressure being 212/103 the case was canceled and she was transported here for continued evaluation. Patient denies headache, focal weakness, chest pain, abdominal pain, shortness of breath, any acute complaints at this time. Patient takes irbesartan and HCTZ at home for which she has been compliant. Related Data Home Medications Medication Instructions Recorded Confirmed naproxen 250 mg tablet 500 mg PO DAILY Pain 10/27/17 04/14/23 aspirin 81 mg tablet,delayed 81 mg PO DAILY heart health 06/01/18 04/14/23 release melatonin 3 mg tablet 3 mg PO DAILY sleep 06/01/18 04/14/23 hydrochlorothiazide 25 mg tablet 25 mg PO DAILY Fluid 10/26/18 04/14/23 ranitidine HCl 150 mg tablet 150 mg PO BID Heartburn 10/26/18 04/14/23 (Zantac) ursodiol 250 mg tablet 250 mg PO BID liver 10/26/18 04/14/23 losartan 100 mg tablet 100 mg PO DAILY High Blood Pressure 04/14/23 04/14/23 sitagliptin phosphate 50 mg tablet 50 mg PO DAILY Diabetes 04/14/23 04/14/23 (Januvia) Previous Rx's Medication Instructions Recorded amlodipine 10 mg tablet (Norvasc) 10 mg PO DAILY #14 tabs 04/15/23 Allergies Allergy/AdvReac Type Severity Reaction Status Date / Time Sulfa (Sulfonamide Allergy Unknown PAIN IN Verified 04/14/23 16:04 Antibiotics) [facility] Disclaimer: The information contained in this section may have been updated after the patient was seen, as this information can be updated by other users. Medical History (Updated 04/15/23 @ 10:05 by Toño Issa MD) CAD (coronary artery disease) Cataract Diabetes mellitus, type 2 History of cataract History of gastroesophageal reflux (GERD) HLD (hyperlipidemia) HTN (hypertension) Urinary tract infection Surgical History (Updated 04/14/23 @ 15:57 by Breann Conley RN) History of appendectomy History of cholecystectomy History of hysterectomy Family History (Updated 04/14/23 @ 15:59 by Breann Conley RN) Other Family history of cancer Family history of diabetes mellitus type II Family history of myocardial infarction Family history of stroke Social His
--- NOTE | 2023-04-15 09:56 | PC.NURSE ---
Dr. Issa speaking with Dr. Bhatt
--- NOTE | 2023-04-15 09:59 | PC.NURSE ---
APPOINTMENT MADE PER DR VALDEZ'S REQUEST. FOLLOW-UP WITH HAIM ROSE ON FRIDAY AM AT 0845. DR MAJANO NOTIFIED
[2023-04-15 10:05] VITALS: BP 172/79; PULSE 70; RESP 18; TEMP 36.8; O2SAT 97
== END 2023-04-15 10:20 | disposition home or self-care (01) ==
LOC: ER 10:12
PROVIDERS: Emergency Provider Emergency Medicine; PCP Nurse Practitioner Family
DX: I10 Essential (primary) hypertension (principal); I25.10 Atherosclerotic heart disease of native coronary artery without angina pectoris; E11.36 Type 2 diabetes mellitus with diabetic cataract; E78.5 Hyperlipidemia, unspecified; Z87.891 Personal history of nicotine dependence
CPT/HCPCS: 82962; 99283

== ENCOUNTER 2023-04-29 08:50 | Day surgery (SDC) | payer MEDICARE, BC, SELFPAY ==
[2023-04-22 14:26] VITALS: BMI 34.9
[2023-04-29 09:41] VITALS: BP 165/78; PULSE 80; RESP 18; TEMP 36.6; O2SAT 98
[2023-04-29 10:04] LABS: POC Glucose,Bedside 120 (70-110)
[2023-04-29 12:45] VITALS: BP 165/78; PULSE 80; RESP 18; TEMP 36.6; O2SAT 98
== END 2023-04-29 10:42 | disposition home or self-care (01) ==
PROVIDERS: PCP Nurse Practitioner Family; Visit Provider Ophthalmology
PROC: (CPT 66821; principal; 2023-04-29 10:00)
DX: H26.40 Unspecified secondary cataract (principal); E11.9 Type 2 diabetes mellitus without complications
CPT/HCPCS: 66821; 82962

== ENCOUNTER 2023-09-10 10:20 | Day surgery (SDC) | payer MEDICARE, BC, SELFPAY ==
[2023-09-08 13:20] VITALS: BMI 35.0
[2023-09-10] MEDS: LACTATED RINGERS 1000ML 1,000 ML 25 ML IV (11:29)
[2023-09-10 11:31] VITALS: BP 180/89; PULSE 95; RESP 18; TEMP 36.9; O2SAT 97
[2023-09-10 12:34] VITALS: O2SAT 97
--- NOTE | 2023-09-10 12:37 | EXP.ANES.CKL ---
[facility] Disclaimer: The information contained in this section may have been updated after the patient was seen, as this information can be updated by other users. Medical History CAD (coronary artery disease) Cataract Diabetes mellitus, type 2 History of cataract History of gastroesophageal reflux (GERD) HLD (hyperlipidemia) HTN (hypertension) Osteoarthritis Osteoporosis Urinary tract infection Surgical History H/O lumbosacral spine surgery History of appendectomy History of cholecystectomy History of hysterectomy Family History Other Family history of cancer Family history of diabetes mellitus type II Family history of myocardial infarction Family history of stroke Social History Smoking Status: Never smoker alcohol intake: never substance use type: denies use current occupational status: retired Travel in the last 8 weeks: [email or web address] household members: spouse housing: house [facility] Anesthesia Checklist Patient Identification Patient Identification: Arm Band and Verbal (Name & ) Structural Data Admitted From: Home Planned Operative Procedure/s: Colonoscopy Consent for Planned Operative Procedure(s) Verified: Yes NPO Status Verified Time NPO: 00:00 Additional verifications Anesthesia Reactions: No Airway Assessment Mallampati Score:: Class II C-Spine Mobility Assessed: Yes TMJ Mobility Assessed: Yes Dentition: Good Dentition Neurological Assessment Level of Consciousness: Awake Hx Seizures: No Numbness or tingling in extremities: No Anesthesia Plan Anesthesia Risk discussed: Yes Anesthesia Plan: Verified ASA Class: III Anesthesia Type: MAC
[2023-09-10 12:54] VITALS: BP 99/55; PULSE 67; RESP 14; TEMP 36.4; O2SAT 93
[2023-09-10 13:04] VITALS: BP 94/42; PULSE 73; RESP 16; O2SAT 93
--- NOTE | 2023-09-10 13:10 | P.PCN_ITS ---
Procedure: Date: 09/10/23 Patient Date of :: 1950 Procedure Performed:: Colonoscopy Indications:: The patient is a 72-year-old who presents for surveillance colonoscopy for personal history of colon polyps. Performing Provider:: Clive Ledesma MD Referring Provider:: Dorene Stephens APRN Sedation:: See RN records Procedure:: After placing the patient in the left lateral decubitus position, the colonosc opy was gently inserted into the rectum and under direct visualization advanced to the cecum which was identified by transillumination in the right lower quadrant, identification of the ileocecal valve, appendiceal orifice, and cecal strap. Color, texture, mucosa, and anatomy of the colon were carefully examined with the scope. Findings:: The quality of the bowel preparation was fair to poor in the proximal colon. There were scattered areas of fair bowel preparation in the remaining colon. Time was spent irrigating and cleansing the mucosa for improved evaluation. While no large polyps were seen, smaller polyps (5 mm in size or less) or flat polyps could have been missed. On retroflexion view there were small internal hemorrhoids seen. Recommendations:: Recommend to repeat colonoscopy in 3 years with 2 days of liquid diet and split dose bowel preparation Complications:: None Estimated blood obtained (mL): 0 Colonoscopy Component Colonoscopy Component Was a colonoscopy performed during today's procedure?: Yes Recommended follow up colonoscopy of at least 10 years?: Yes
[2023-09-10 13:14] VITALS: BP 135/67; PULSE 71; RESP 16; O2SAT 98
[2023-09-10 13:24] VITALS: BP 135/76; PULSE 83; RESP 16; TEMP 36.9; O2SAT 95
== END 2023-09-10 13:30 | disposition home or self-care (01) ==
PROVIDERS: PCP Nurse Practitioner Family; Visit Provider Internal Medicine
PROC: (CPT G0105; principal; 2023-09-10 12:00)
DX: Z12.11 Encounter for screening for malignant neoplasm of colon (principal); Z86.010 Personal history of colon polyps; K64.8 Other hemorrhoids
CPT/HCPCS: G0105

== ENCOUNTER 2023-09-30 13:06 | Outpatient (POV) | payer MEDICARE, BC, SELFPAY | END 2023-09-30 23:59 | disposition home or self-care (01) | LOC: SC 13:06 | PROVIDERS: PCP Nurse Practitioner Family; Visit Provider Dermatology | DX: Z00.00 Encounter for general adult medical examination without abnormal findings (principal) ==

== ENCOUNTER 2023-10-09 15:41 | Outpatient (CLI) | payer MEDICARE, BC, SELFPAY | END 2023-10-09 23:59 | PROVIDERS: PCP Nurse Practitioner Family; Visit Provider Nurse Practitioner Family | DX: R35.0 Frequency of micturition (principal); B96.29 Other Escherichia coli [E. coli] as the cause of diseases classified elsewhere | CPT/HCPCS: 87086 ==

== ENCOUNTER 2023-10-17 13:18 | Outpatient (CLI) | payer MEDICARE, BC, SELFPAY | END 2023-10-17 23:59 | PROVIDERS: PCP Nurse Practitioner Family; Visit Provider Nurse Practitioner Family | DX: R30.0 Dysuria (principal); B96.89 Other specified bacterial agents as the cause of diseases classified elsewhere | CPT/HCPCS: 87086 ==

== ENCOUNTER 2024-03-16 12:14 | Outpatient (CLI) | payer MEDICARE, BC, SELFPAY ==
--- NOTE | 2024-03-16 12:18 | XR_ITS ---
FINAL REPORT CLINICAL HISTORY: PAIN COMPARISON: None FINDINGS: Three views of the left knee reveal no evidence of fracture or dislocation. The bony alignment is normal. Mild and moderate degenerative changes present. This is most severe in the patellofemoral compartment. There is a small joint effusion. No localized soft tissue abnormality is seen. IMPRESSION: Mild and moderate degenerative changes are present, most severe in the patellofemoral compartment. Small joint effusion. Reviewed, Interpreted and Dictated by Sebastián Manriquez III, MD Transcribed by Brianna Caicedo Authenticated and [facility]
== END 2024-03-16 23:59 | disposition home or self-care (01) ==
LOC: RAD 12:15
PROVIDERS: PCP Nurse Practitioner Family; Visit Provider Nurse Practitioner Family
DX: M25.562 Pain in left knee (principal)
CPT/HCPCS: 73562

== ENCOUNTER 2024-04-08 14:16 | Outpatient (CLI) | payer MEDICARE, BC, SELFPAY ==
--- NOTE | 2024-04-08 14:24 | MM_ITS ---
PROCEDURE INFORMATION: Exam: MG Bilateral Screening 3D Mammography Exam date and time: 04/08/2024 2:10 PM Age: 73 years old Clinical indication: Screening examination TECHNIQUE: Imaging protocol: Bilateral Screening tomosynthesis and 2D mammography including computer-aided detection (CAD) when performed. COMPARISON: 1. MG MM DIG SCREENING MAMM BI W/CAD 10/18/2022 3:40 PM 2. MG MM DIG SCREENING MAMM BI W/CAD 09/24/2021 9:59 AM FINDINGS: MAMMOGRAPHY: Breast composition: There are scattered areas of fibroglandular density. Mass: None. Architectural distortion: None. Calcifications: No suspicious calcifications. Asymmetric density: None. Skin thickening: None. Axillary adenopathy: None. IMPRESSION: No mammographic evidence of malignancy. Annual screening is recommended unless otherwise clinically indicated. ASSESSMENT: BI-RADS Category 1: Negative.
== END 2024-04-08 23:59 | disposition home or self-care (01) ==
LOC: RAD 14:17
PROVIDERS: PCP Internal Medicine Adolescent Medicine; Visit Provider Nurse Practitioner Family
DX: Z12.31 Encounter for screening mammogram for malignant neoplasm of breast (principal)
CPT/HCPCS: 77063; 77067

== ENCOUNTER 2024-08-17 07:55 | Day surgery (SDC) | payer MEDICARE, BC, SELFPAY ==
[2024-08-11 16:48] VITALS: BMI 34.7
[2024-08-17] MEDS: APRACLONIDINE 0.5% OPHTH SOLN 5ML OP (08:11)
[2024-08-17] MEDS: TETRACAINE 0.5% OPTH SOL 15ML OP (08:11)
[2024-08-17 08:12] VITALS: BP 174/72; PULSE 91; RESP 18; TEMP 36.3; O2SAT 97
[2024-08-17] MEDS: PHENYLEPHRINE 2.5% OPHTH SOLN 2ML OP (08:12)
[2024-08-17] MEDS: TROPICAMIDE 1% OPTH SOLN 2ML OP (08:12)
[2024-08-17 08:16] LABS: POC Glucose,Bedside 132 (70-110)
--- NOTE | 2024-08-17 10:37 | P.PCN_ITS ---
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 The patient has noticed that the vision has decreased from the previous good level postop. The patient reports that he/she is having trouble reading and/or driving or that glare is giving them a problem. On exam, the patient was found to have visually significant posterior capsular opacification. The treatment options, risks and benefits were explained and the patient elected to have YAG laser capsulotomy in an attempt to improve the vision. Of note, the best corrected visual acuity is in the 20/30 or worse range by refraction or glare testing. The eye was dilated and 1 drop of 0.5% Iopidine applied. YAG laser energy was applied to the posterior capsular bag with good formation of an opening and no complications were noted. The patient will be seen back for follow up in 2 weeks. 20 pulses, 67mj.
== END 2024-08-17 09:37 | disposition home or self-care (01) ==
LOC: OUTP 07:57
PROVIDERS: PCP Internal Medicine Adolescent Medicine; Visit Provider Ophthalmology
PROC: (CPT 66821; principal; 2024-08-17 09:00)
DX: H26.491 Other secondary cataract, right eye (principal); E11.9 Type 2 diabetes mellitus without complications; Z79.84 Long term (current) use of oral hypoglycemic drugs
CPT/HCPCS: 66821; 82962

== ENCOUNTER 2024-12-20 14:43 | Outpatient (CLI) | payer MEDICARE, BC, SELFPAY ==
--- NOTE | 2024-12-20 14:45 | CT_ITS ---
FINAL REPORT TECHNIQUE: Thin section axial CT images with coronal and sagittal reformats were obtained through the neck after the administration of IV contrast. This study was performed with techniques to keep radiation doses as low as reasonably achievable (ALARA). Individualized dose reduction techniques using automated exposure control or adjustment of mA and/or kV according to the patient's size were employed. CLINICAL HISTORY: PAROTID SWELLING COMPARISON: None FINDINGS: CT NECK WITH CONTRAST The paranasal sinuses are clear. There is no evidence of parotid mass. There are no significant inflammatory changes of the submandibular gland. The larynx is normal. There is at least 1, and probably 2, right thyroid lesions. The largest of these measures up to 8 mm. There is no adenopathy or fluid collection. IMPRESSION: No evidence of salivary gland mass or adenopathy. Right thyroid nodules, nonspecific. Thyroid ultrasound may be considered. Reviewed, Interpreted and Dictated by Matheus Cotton MD Transcribed by Angelica Rivers Authenticated and . [facility]
[2024-12-20 15:15] LABS: Blood Urea Nitrogen 21 mg/dl (7-17); Estimated Glomerular Filt Rate 44 ml/min (>60); GFR (African American) 53 ML/MIN (>60)
[2024-12-20] MEDS: IOPAMIDOL-370 (76%);100ML BOTTLE 75 ML IV (15:59)
[2024-12-20] MEDS: SODIUM CHLORIDE 0.9% 10ML SYR (RAD ONLY) 10 ML IV (15:59)
== END 2024-12-20 23:59 | disposition home or self-care (01) ==
LOC: RAD 14:44
PROVIDERS: PCP Internal Medicine Adolescent Medicine; Visit Provider Nurse Practitioner Family
DX: E04.1 Nontoxic single thyroid nodule (principal); R60.9 Edema, unspecified
CPT/HCPCS: 70491; 82565; 84520; Q9967

== ENCOUNTER 2024-12-30 09:02 | Outpatient (CLI) | payer MEDICARE, BC, SELFPAY ==
--- NOTE | 2024-12-30 09:05 | US_ITS ---
FINAL REPORT TECHNIQUE: Limited graphic images of the thyroid were obtained. CLINICAL HISTORY: NODULE COMPARISON: CT dated 12/20/2024 FINDINGS: The right lobe of the thyroid measures 4.6 x 1.7 x 1.6 cm. The left lobe of the thyroid measures 4.3 x 1.5 x 1.4 cm. There are multitude of bilateral thyroid nodules. Largest nodule on the right measures 1.0 cm compatible with TR 3. Largest nodule on the left measures 0.8 cm compatible with TR 4. There is also an 8 mm nodule in the lower pole of the left thyroid compatible with TR 3. IMPRESSION: Multiple bilateral thyroid nodules as detailed above. No follow-up is recommended. Reviewed, Interpreted and Dictated by Bunny Pettit MD Transcribed by Yamilet Dodson Authenticated and . [facility]
== END 2024-12-30 23:59 | disposition home or self-care (01) ==
LOC: RAD 09:03
PROVIDERS: PCP Nurse Practitioner Family; Visit Provider Nurse Practitioner Family
DX: R91.8 Other nonspecific abnormal finding of lung field (principal)
CPT/HCPCS: 76536

== ENCOUNTER 2025-02-17 11:26 | Outpatient (CLI) | payer MEDICARE, OTHER, SELFPAY ==
--- NOTE | 2025-02-17 11:31 | XR_ITS ---
FINAL REPORT CLINICAL HISTORY: Left knee pain COMPARISON: 03/16/2024 FINDINGS: LEFT KNEE Three views demonstrate no acute fracture or dislocation. There are moderate tricompartmental degenerative changes. The findings have progressed from the prior study. There is a small joint effusion. A joint body is suspected posteriorly. No acute soft tissue abnormality is seen. IMPRESSION: Progressive degenerative changes. Reviewed, Interpreted and Dictated by Matheus Cotton MD Transcribed by Angelica Rivers Authenticated and [facility]
--- NOTE | 2025-02-17 11:31 | XR_ITS ---
FINAL REPORT CLINICAL HISTORY: PAIN IN RIGHT AND LEFT KNEE .....OTHER CHRONIC PAIN COMPARISON: None FINDINGS: RIGHT KNEE Three views demonstrate no acute fracture or dislocation. There are moderate tricompartmental degenerative changes. No acute soft tissue abnormality is seen. IMPRESSION: Degenerative changes without acute bony abnormality. Reviewed, Interpreted and Dictated by Matheus Cotton MD Transcribed by Angelica Rivers Authenticated and [facility]
--- OUTSIDE RECORDS SUMMARY | 2025-02-17 11:33 | XMS_ITS | Encounter Summary ---
Author Organization Healthcare Address [address] [place] [address] Care Team Providers Care Professor Of Forest Planning Name Role Phone Unavailable Primary Care Provider Unavailabl e Encounter Details Date Type Department Care Team (Late st Contact Info) Description 01/09/2023 Orders Only External Location [address] [place] [address] Dorene Stephens, HAIM [address] [place] [address] Social History Tobacco Use Types Packs/Day Years Used Date Smoking Tobacco: Never Assessed Comments Unknown Sex and Gender Information Value Date Recorded Sex Assigned at Not on file Legal Sex Female 5:56 PM EDT Gender Identity Not on file Sexual Orientation Not on file documented as of this encounter Plan of Treatment Not on file documented as of this encounter Procedures Procedure Name Priority Date/Time Associated Diagnosis Comments MR OUTSIDE IMAGES 01/09/2023 1:34 PM EDT documented in this encounter Results * MR transfer of outside films (01/09/2023 1:34 PM EDT) Anatomical Region Laterality Modality Magnetic Resonan ce 01/09/2023 1:34 PM EDT Dorene Stephens DISPLAY TRIMMER IMG MRI PROCEDURES Final R esult documented in this encounter Visit Diagnoses Not on filedocumented in this encounter
--- OUTSIDE RECORDS SUMMARY | 2025-02-17 11:33 | XMS_ITS | Clinical Summary ---
Author Organization Healthcare Address [address] [place] [address] Care Team Providers Care Fabricator Foam Rubber Name Role Phone Unavailable Primary Care Provider Unavailabl e Social History Tobacco Use Types Packs/Day Years Used Date Smoking Tobacco: Never Assessed Comments Unknown Sex and Gender Information Value Date Recorded Sex Assigned at Not on file Legal Sex Female 5:56 PM EDT Gender Identity Not on file Sexual Orientation Not on file Plan of Treatment Not on file
== END 2025-02-17 23:59 | disposition home or self-care (01) ==
PROVIDERS: PCP Nurse Practitioner Family; Visit Provider Nurse Practitioner Family
DX: M17.0 Bilateral primary osteoarthritis of knee
CPT/HCPCS: 73562

== ENCOUNTER 2025-02-18 15:41 | Outpatient (CLI) | payer MEDICARE, OTHER, SELFPAY ==
--- OUTSIDE RECORDS SUMMARY | 2025-02-18 15:43 | XMS_ITS | Encounter Summary ---
Author Organization Healthcare Address [address] [place] [address] Care Team Providers Care Artificial Marble Worker Name Role Phone Unavailable Primary Care Provider Unavailabl e Encounter Details Date Type Department Care Team (Late st Contact Info) Description 01/09/2023 Orders Only External Location [address] [place] [address] Dorene Stephens, HAIM [address] [place] [address] Social History Tobacco Use Types Packs/Day Years [...] ce 01/09/2023 1:34 PM EDT Dorene Stephens CAMP PROGRAM DIRECTOR IMG MRI PROCEDURES Final R esult documented in this encounter Visit Diagnoses Not on filedocumented in this encounter
--- OUTSIDE RECORDS SUMMARY | 2025-02-18 15:43 | XMS_ITS | Clinical Summary ---
Author Organization Healthcare Address [address] [place] [address] Care Team Providers Care New Accounts Representative Name Role Phone Unavailable Primary Care Provider [...]
--- OUTSIDE RECORDS SUMMARY | 2025-02-18 15:43 | XMS_ITS | Clinical Summary ---
Author Organization [facility] Address [address] [place] [address] Care Team Providers Care Paper Cutter Name Role Phone Dorene Stephens APRN Primary Care Provid er Allergies Active Allergy Reactions Criticality Noted Date Comments Sulfamethoxazole-Trimethoprim Myalgia Medium 2022 Severe leg pain Sulfa Antibiotics Myalgia Medium 01/19/2019 Medications hydroCHLOROthia zide (HYDRODIURIL) 25 MG tablet 02/17/2023 Active irbesartan (AVAPRO) 150 MG tablet 02/17/2023 Active Januvia 50 MG tablet 02/17/2023 Active ursodiol (ACTIGALL) 500 MG tablet Take 1 tablet by mouth Every 12 (Twelve) Hours. 12/09/2022 Active naproxen sodium (ANAPROX) 550 MG tablet Take 1 tablet by mouth 2 (Two) Times a Day With Meals. Active aspirin 81 MG EC tablet Take 1 tablet by mouth Daily. Active amLODIPine (NORVASC) 10 MG tablet Take 1 tablet by mouth Daily. 04/28/2023 Active Multiple Vitamins-Minera ls (PRESERVISION AREDS 2 PO) Take by mouth. Active Calcium Carbonate-Vitam in D (CALTRATE 600+D PO) Take by mouth. Active cetirizine (zyrTEC) 5 MG tablet Take 1 tablet by mouth Daily. Active Banner-3 Fatty Acids (Fish Oil Burp-Less) 1200 MG capsule Take by mouth. Active melatonin 5 MG tablet tablet Take 2 tablets by mouth. Active multivitamin with minerals (CENTRUM ULTRA WOMENS PO) Take 1 tablet by mouth Daily. Active naproxen (NAPROSYN) 500 MG tablet Take 1 tablet by mouth 2 (Two) Times a Day With Meals. Active Carboxymethylce llulose Sodium (EYE DROPS OP) Apply to eye(s) as directed by provider. For freckles behind eyes. Active methocarbamol (ROBAXIN) 500 MG tablet Take 1 tablet by mouth 2 (Two) Times a Day As Needed for Muscle Spasms. 30 tablet 1 01/13/2024 Active amitriptyline (ELAVIL) 10 MG tablet Take 1 tablet by mouth Daily. 03/03/2024 Active CIPROFLOXACIN PO Take by mouth. Ends 05/20/2024 Active Active Problems Problem Noted Date Diagnosed Date Lumbar disc herniation 05/20/2023 Synovial cyst of lumbar facet joint 05/20/2023 Family History Medical History Relation Name Comments Alcohol abuse Father Scott valdez Stroke Maternal Grandmother Shelby cleaning Cancer Mother Eden valdez Early Mother Eden valdez COPD Sister Prudence valdez Diabetes Sister Prudence valdez Heart disease Sister Prudence valdez Hyperlipidemia Sister Prudence valdez Hypertension Sister Prudence valdez Relation Name Status Comments Father Scott valdez Maternal Grandmother Shelby cleaning Mother Eden valdez Social History Tobacco Use Types Packs/Day Years Used Date Smoking Tobacco: Former Cigarettes Q uit: 1985 Alcohol Use Standard Drinks/Week Comments Never 0 (1 standard drink = 0.6 oz pur e alcohol) PHQ-2 Answer Date Recorded Retired PHQ-9: Brief Depression Severity Measure Score 0 04/02/2023 Abuse Screen Answer Date Recorded Feels Unsafe at Home or Work/School no 06/09/2023 Feels Threatened by Someone no 01/2023 Does Anyone Try to Keep You From Having Contact with Others or Doing Things Outside Your Home? no 06/09/2023 Physical Signs of Abuse Present no 06/09/2023 Housing Stability Answer Date Recorded Current Living Arrangements Not on file 05/04 Potentially Unsafe Housing Conditions Not on reji e 05/15/2023 Family and Community Support Answer Slava e Recorded Help with Day-to-Day Activities Not on file 05/15/2023 Lonely or Isolated Not on file 05/15/2023 Employment Answer Date Recorded Do you want help finding or keeping work or a isidoro b? Not on file 05/15/2023 Disabilities Answer Date Recorded Concentrating, Remembering, or Making Decisions Difficulty Not on file 05/15/2023 Doing Errands Independently Difficulty Not on fi le 05/15/2023 Education Answer Date Recorded Help with school or training? Not on file Preferred Language Taiwanese 06/05/2023 PHQ-2 Answer Date Recorded Patient Health Questionnaire-2 Score 0 05/19/2024 Comments Unknown Sex and Gender Information Value Date Recorded Sex Assigned at Not on file Legal Sex Female 9:08 AM EDT Gender Identity Not on file Sexual Orientation Not on file Last Filed Vital Signs Vital Sign Reading Time Taken Comments Blood Pressure 115/81 06/09/2023 4:00 PM EST Pulse 102 07/01/2023 9:50 AM EST Temperature 36.8 C (98.3 F) 08/13/2023 11:09 AM EST Respiratory Rate 17 08/13/2023 11:09 AM EST Oxygen Saturation 97% 07/01/2023 9:50 AM EST Inhaled Oxygen Concentration - - Weight 90.8 kg (200 lb 1.6 oz) 05/19/2024 1:47 P M EDT Height 160 cm (5' 2.99 ) 05/19/2024 1:47 PM EDT Body Mass Index 35.46 05/19/2024 1:47 PM EDT Plan of Treatment Health Maintenance Due Date Last Done Comments DXA SCAN 1950 TDAP/TD VACCINES (1 - Tdap) 1969 MAMMOGRAM 1990 COLOGUARD 11/04/1995 COLON CANCER SCREENING 5 YEAR SIGMOIDOSCOPY 11/04/1995 COLONOSCOPY 11/04/1995 COLORECTAL CANCER SCREENING 11/04/1995 CT COLONOGRAPHY 11/04/1995 FECAL OCCULT BLOOD TEST 11/04/1995 FIT Testing (1 year) 11/04/1995 Pneumococcal Vaccine 50+ (1 of 1 - PCV) 2000 ZOSTER VACCINE (1 of 2) 2000 ANNUAL WELLNESS VISIT 02/07/2023 HEPATITIS C SCREENING 02/07/2023 COVID-19 Vaccine ( - season) 2024 INFLUENZA VACCINE 05/04/2025 Medical Devices Implanted Type Area Childcare Worker Device Identifier Shelf Expiration Date Model / Serial / Lot Kt Seal Hemos Abs Floseal Matrx Fast/Prep 10ml - [id number] Implanted:Qty : 1 on 06/09/2023 by Guanako Askew MD at [facility] Implant N/A: Spine Lumbar COUNT INCLUDES THE [facility] [id number] 03/07/2024 [id number] / / [id number] Hemost Abs Surgifoam Sz100 8x12 10mm - [id number] Implanted:Qty : 1 on 06/09/2023 by Guanako Askew MD at [facility] Implant N/A: Spine Lumbar [employer] J [id number] 08/05/2026 [id number] / / [id number] Wax Bone Hemo Aesculap 2.5gm - [id number] Implanted:Qty : 1 on 06/09/2023 by Guanako Askew MD at [facility] Implant N/A: Spine Lumbar [employer] [place] [employer] [place] [id number] 01/01/2027 [id number] / / [id number] Insurance MEDICARE A & B Care Teams Paper Cutter Relationship Specialty Start Date End Date Dorene Stephens APRN [address] [place] [id number] PCP - General Family Medicine 01/13/24
--- NOTE | 2025-02-18 15:44 | MM_ITS ---
PROCEDURE INFORMATION: Exam: MG Bilateral Screening 3D Mammography Exam date and time: 02/18/2025 3:55 PM Age: 74 years old Clinical indication: Screening examination TECHNIQUE: Imaging protocol: Bilateral Screening tomosynthesis and 2D mammography including computer-aided detection (CAD) when performed. COMPARISON: 1. MG MM DIG SCREENING MAMM BI W/CAD 04/08/2024 2:10 PM 2. MG MM DIG SCREENING MAMM BI W/CAD 10/18/2022 3:40 PM FINDINGS: MAMMOGRAPHY: Breast composition: There are scattered areas of fibroglandular density. Mass: None. Architectural distortion: None. Calcifications: No suspicious calcifications. Asymmetric density: None. Skin thickening: None. Axillary adenopathy: None. IMPRESSION: No mammographic evidence of malignancy. Annual screening is recommended unless otherwise clinically indicated. ASSESSMENT: BI-RADS Category 1: Negative.
== END 2025-02-18 23:59 | disposition home or self-care (01) ==
LOC: RAD 15:42
PROVIDERS: PCP Nurse Practitioner Family; Visit Provider Nurse Practitioner Family
DX: Z12.31 Encounter for screening mammogram for malignant neoplasm of breast (principal); R92.323 Mammographic fibroglandular density, bilateral breasts
CPT/HCPCS: 77063; 77067

== ENCOUNTER 2025-03-30 11:00 | Outpatient (RCR) | payer MEDICARE, OTHER, SELFPAY | END 2025-03-30 23:59 | disposition home or self-care (01) | LOC: PT 11:00 | PROVIDERS: Visit Provider Nurse Practitioner Family | DX: M25.561 Pain in right knee (principal); M25.562 Pain in left knee | CPT/HCPCS: 97110; 97162; 97530 ==

== ENCOUNTER 2025-04-18 06:47 | Outpatient (CLI) | payer MEDICARE, OTHER, SELFPAY ==
--- NOTE | 2025-04-18 06:49 | MR_ITS ---
FINAL REPORT TECHNIQUE: Multiplanar MR right knee without contrast CLINICAL HISTORY: PAIN IN RIGHT KNEE lateral and posterior knee pain instability nki FINDINGS: Articular cartilage: Severe thinning within the lateral compartment. Grade IV chondromalacia patella. No full-thickness tear identified. Marrow signal: Extensive marrow edema at the lateral tibial plateau and lateral femoral condyle attributed to arthritic disease. No fracture identified. Joint fluid: Moderate-sized joint effusion. Tiny loose body in the posterior medial joint space measuring 3 mm. Menisci: Macerated tear of the anterior horn and body of the lateral meniscus. Medial meniscus intact. Ligaments: Grade 1 tear of the proximal MCL. Lateral collateral ligament and cruciate ligaments intact. Tendons: Quadriceps and patellar tendon normal IMPRESSION: Macerated tear of the anterior horn and body of the lateral meniscus. Grade 1 tear of the proximal MCL. Severe thinning of the articular cartilage of the lateral compartment with grade IV chondromalacia patella. Reviewed, Interpreted and Dictated by Matheus Cotton MD Transcribed by Jane Richards Authenticated and [facility]
--- OUTSIDE RECORDS SUMMARY | 2025-04-18 06:50 | XMS_ITS | Clinical Summary ---
Author Organization Healthcare Address [address] [place] [address] Care Team Providers Care Teacher Lip Reading Name Role Phone Unavailable Primary Care Provider [...]
--- OUTSIDE RECORDS SUMMARY | 2025-04-18 06:50 | XMS_ITS | Encounter Summary ---
Author Organization Healthcare Address [address] [place] [address] Care Team Providers Care Vice Principal Name Role Phone Unavailable Primary Care Provider Unavailabl e Encounter Details Date Type Department Care Team (Late st Contact Info) Description 01/09/2023 Orders Only External Location [address] [place] [address] Dorene Stephens, HAIM [address] [place] [address] Social History Tobacco Use Types Packs/Day Years [...] ce 01/09/2023 1:34 PM EDT Dorene Stephens PONDMAN IMG MRI PROCEDURES Final R esult documented in this encounter Visit Diagnoses Not on filedocumented in this encounter
--- OUTSIDE RECORDS SUMMARY | 2025-04-18 06:50 | XMS_ITS | Clinical Summary ---
Author Organization [facility] Address [address] [place] [address] Care Team Providers Care Legal Officer Name Role Phone Dorene Stephens APRN Primary [...] Take 1 tablet by mouth Daily. Active [place]-3 Fatty Acids (Fish Oil Burp-Less) 1200 MG [...] or training? Not on file Preferred Language Montenegrin 06/05/2023 PHQ-2 Answer Date Recorded Patient Health [...] 02/07/2023 HEPATITIS C SCREENING 02/07/2023 COVID-19 Vaccine (1 - season) 2025 INFLUENZA VACCINE 05/04/2025 Medical Devices Implanted Type Area College Physics Instructor Device Identifier Shelf Expiration Date Model / Serial / Lot Kt Seal Hemos Abs Floseal Matrx Fast/Prep 10ml - [id number] Implanted:Qty : 1 on 06/09/2023 by Guanako Askew MD at [facility] Implant N/A: Spine Lumbar [employer] [id number] 03/07/2024 [id number] / / [id number] Hemost Abs Surgifoam Sz100 8x12 10mm - [id number] Implanted:Qty : 1 on 06/09/2023 by Guanako Askew MD at [facility] Implant N/A: Spine Lumbar [employer] J [employer] J [id number] 08/05/2026 [id number] / / [id number] Wax Bone Hemo Aesculap 2.5gm - [id number] Implanted:Qty : 1 on 06/09/2023 by Guanako Askew MD at [facility] Implant N/A: Spine Lumbar [employer] [place] [id number] 01/01/2027 [id number] / / [id number] Insurance MEDICARE A & B Care Teams Legal Officer Relationship Specialty Start Date End Date Droene Stephens APRN [address] [place] [id number] PCP - General Family Medicine 01/13/24
== END 2025-04-18 23:59 | disposition home or self-care (01) ==
LOC: RAD 06:48
PROVIDERS: PCP Nurse Practitioner Family; Visit Provider Nurse Practitioner Family
DX: S83.281A Other tear of lateral meniscus, current injury, right knee, initial encounter (principal); S83.411A Sprain of medial collateral ligament of right knee, initial encounter; M22.41 Chondromalacia patellae, right knee
CPT/HCPCS: 73721